=== PATIENT | female | born 1980 | race Caucasian/White ===

== ENCOUNTER 2016-09-19 20:55 | Emergency (ER) | payer BC ==
[2016-09-19 21:07] VITALS: BP 117/80
--- NOTE | 2016-09-19 21:25 | EDM.PDOC ---
ED HPI Skin/Rash - General Chief Complaint: Laceration Stated Complaint: HIT ON HEAD BY A CROWBAR Time Seen by Provider: 09/19/16 20:58 Source: Reports: Patient History Limitations: Reports: No limitations - History of Present Illness INITIAL COMMENTS - FREE TEXT/NARRATIVE: Is a 36-year-old female. She was using a crowbar to try down a false ceiling. She was standing on a ladder and the wound would not given him suddenly gave way and the end of the crowbar hit her in the right fore head area. She washed right away with peroxide but because her slight swelling there and a small laceration she comes to the ER for evaluation. She denies any loss of consciousness she did not fall off the ladder denies any other acute symptoms. She is up-to-date with her tetanus. - Related Data Allergies Allergy/AdvReac Type Severity Reaction Status Date / Time No Known Allergies Allergy Verified 09/19/16 21:02 Home Meds: Ambulatory Orders Medication Instructions Recorded Confirmed . [No Known Home Meds] 09/19/16 09/19/16 Past Medical History - Past Health History Medical/Surgical History: Denies Medical/Surgical History [employer]GER History: Reports: Neurological History: Reports: Seizure Other Neuro History: Seizure free since 2000 Social & Family History - Tobacco Use Smoking Status *Q: Never Smoker - Recreational Drug Use Recreational Drug Use: No ED ROS GENERAL - Review of Systems Review Of Systems: See Below Constitutional: Reports: no symptoms HEENT: Reports: Other (As per history of present illness) Respiratory: Reports: No Symptoms Cardiovascular: Reports: No symptoms Endocrine: Reports: no symptoms GI/Abdominal: Reports: No symptoms : Reports: no symptoms Musculoskeletal: Reports: no symptoms Skin: Reports: other (As per history of present illness) Neurological: Reports: No Symptoms Psychiatric: Reports: No symptoms Hematologic/Lymphatic: Reports: no symptoms Immunologic: Reports: no symptoms ED EXAM, SKIN/RASH Exam: See Below Exam Limited By: No limitations General Appearance: alert, WD/WN, no apparent distress Eye Exam: bilateral eye: normal inspection Ears: normal external exam Nose: normal inspection Throat/Mouth: Normal voice, No airway compromise Head: other (On the right fore head there is a small swollen area about 1.5 cm in size and almost middle of it there is about a 8-10 mm superficial laceration noted, there is no gapping of the skin and not able to pull it apart) Neck: normal inspection, supple Respiratory/Chest: no respiratory distress GI/Abdominal: soft Back Exam: full range of motion Extremities: normal inspection, normal range of motion Neurological: alert, oriented Psychiatric: normal affect, normal mood Skin: Warm, Dry ED SKIN PROCEDURES - Laceration/Wound Repair Right Forehead Lac/wound length in cm: 1 Appearance: superficial, linear Distal NVT: neuro & vascular intact Tetanus status addressed: Yes Complications: No Progress/Comments: The wound is very superficial I could not pull up apart therefore I used Dermabond to seal the laceration with good results. Course - Vital Signs Last Recorded V/S: Last Vital Signs Temp 98.2 F 09/19/16 21:03 Pulse 58 L 09/19/16 21:03 Resp 16 09/19/16 21:03 BP 117/80 09/19/16 21:03 Pulse Ox 100 09/19/16 21:03 Departure - Departure Time of Disposition: 21:31 Disposition: Home, Self-Care 01 Condition: good Clinical Impression: Laceration of forehead without complication Qualifiers: Encounter type: initial encounter Qualified Code(s): S01.81XA - Laceration without foreign body of other part of head, initial encounter Forms: ED Department Discharge Additional Instructions: You may take a shower in the morning but do not rub that area, the glue might peel off and if it does just leave it alone but normally the glue will last 5-6 days before it comes off but by then the wound will be sealed, watch for infection any signs of redness or drainage return to the ER, use some ice on and off tonight to help with the swelling, recheck the ER as needed
== END 2016-09-19 21:45 | disposition home or self-care (01) ==
LOC: JD.ED 20:55
DX: S01.81XA Laceration without foreign body of other part of head, initial encounter (principal); W22.8XXA Striking against or struck by other objects, initial encounter
CPT/HCPCS: 12011; 99282; 99283-25

== ENCOUNTER 2021-07-12 12:17 | Emergency (ER) | payer BC, OTHER ==
[2021-07-12 12:31] VITALS: BP 142/107; PULSE 61
[2021-07-12] MEDS ORDERED: Lidocaine 1% 10 ML MDV INJECT ONE (12:47)
== END 2021-07-12 13:25 | disposition home or self-care (01) ==
LOC: JD.ED 12:17
DX: S61.511A Laceration without foreign body of right wrist, initial encounter (principal); W26.8XXA Contact with other sharp object(s), not elsewhere classified, initial encounter; Y99.0 Civilian activity done for income or pay
CPT/HCPCS: 12001; 73110-26-RT; 73110-RT; 99283; 99283-25